=== PATIENT | female | born 1975 | race Caucasian/White ===

== ENCOUNTER 2017-11-29 12:42 | Inpatient (IN) | payer OTHER ==
--- NOTE | 2017-11-29 15:01 | PDOC ---
Attending Attestation - HPI HPI: 11/29/17 15:48 The patient is a 42 year old female, with a significant PMH of gastric bypass, morbid obesity, prior GI bleeding, GERD, chronic back pain, who presents to the emergency department with approx 10 episodes of black stool in the past 3 days. The patient also states beginning today she has experienced epigastric abdominal pain and suprapubic abdominal pain which she states radiates diffusely with associated nausea, shortness of breath, generalized weakness and lightheadedness. The patient denies any history of black stool in the past. The patient reports she has recently finished her LMP. The patient denies chest pain, palpitations, syncope, headache. Denies fever, chills, vomit, diarrhea and constipation. Denies dysuria, frequency, urgency and hematuria. Allergies: hydromorphone, morphine Past surgical history: gastric bypass (2001), cholecystectomy, Social history: No reported PCP: Dr Potts Documentation prepared by Tuan White, acting as chief medical director for Mariana Dorsey MD. <Tuan White - Last Filed: 11/29/17 15:54> - Resident Resident Name: Katt Marina - ED Attending Attestation I have performed the following: I have examined & evaluated the patient, The case was reviewed & discussed with the resident, I agree w/resident's findings & plan, Exceptions are as noted - Physicial Exam PE: GENERAL: Awake, alert, and fully oriented, in no acute distress. Obese. HEAD: No signs of trauma EYES: PERRLA, EOMI, sclera anicteric, conjunctiva clear ENT: Auricles normal inspection, hearing grossly normal, nares patent, oropharynx clear without exudates. Dry mucosa NECK: Normal ROM, supple, no lymphadenopathy, JVD, or masses LUNGS: Breath sounds equal, clear to auscultation bilaterally. No wheezes, and no crackles HEART: Regular rate and rhythm, normal S1 and S2, no murmurs, rubs or gallops ABDOMEN: Soft, diffusely tender, normoactive bowel sounds. +Guarding, no rebound. No masses EXTREMITIES: Normal range of motion, no edema. No clubbing or cyanosis. No cords, erythema, or tenderness NEUROLOGICAL: Cranial nerves II through XII grossly intact. Normal speech, normal gait. Motor and sensation intact. SKIN: Warm, Dry, normal turgor, no rashes or lesions noted. - Medical Decision Making Pt with prior gastric bypass surgery, now with +stool occult and abd pain. Will obtain non-contrast CT a/p in ED to r/o free air. Protonix, protonix drip given in ED. Patient given IV tylenol for pain due to history of side effects with opioids. Will admit. <Mariana Dorsey - Last Filed: 12/02/17 08:25>
[2017-11-29] MEDS ORDERED: SODIUM CHLORIDE 0.9% 500 ML INFUS.BAG IV ONE ×2 (15:18→16:36)
--- NOTE | 2017-11-29 15:29 | PDOC ---
History of Present Illness - General Chief Complaint: Rectal Bleed Stated Complaint: LIGHTHEADED Time Seen by Provider: 11/29/17 14:35 History Source: Patient Exam Limitations: No Limitations - History of Present Illness Initial Comments: 11/29/17 15:22 This is a 42 YOF with h/o yazmin-en-Y gastric bypass (in 2001), cholecystectomy, morbid obesity (currently), prior GI bleeding (cannot recall whether this was upper or lower but notes this was 10-12 years ago), GERD, and chronic back pain who p/w ~10 episodes black stool in the past 3 days, in addition to recently finishing her normal menstrual period, today with additional onset of epigastric and suprapubic abdominal pain radiating diffusely to her abdomen, nausea, SOB, generalized weakness, lightheadedness, pallor. She denies BRBPR. She has not been taking iron, antacids, or other medications that may be contributing to the black stool. She had a colonoscopy 5-6 years ago which showed non-cancerous polyps, removed without issue. She cannot recall having had this black stool in the past. She otherwise denies any new symptoms (no f/c , vomiting, diarrhea, syncope, etc). She denies any chance she may be . She has been taking more Aleve in the past month or so than normal. She notes 2- 3 doses/day for her chronic back pain. Past History - Past Medical History Allergies/Adverse Reactions: Allergies Allergy/AdvReac Type Severity Reaction Status Date / Time hydromorphone [From Dilaudid] Allergy Severe Hives Verified 11/29/17 12:52 morphine Allergy Severe Rash Verified 11/29/17 12:52 Home Medications: Ambulatory Orders Levothyroxine [Synthroid -] 112 mcg PO DAILY 11/29/17 Ascorbic Acid [Vitamin C] 250 mg PO DAILY #30 tablet 12/02/17 Docusate Sodium [Colace] 100 mg PO BID PRN #60 capsule 12/02/17 Ferrous Sulfate 325 mg PO DAILY #30 tablet 12/02/17 Polyethylene Glycol 3350 [Miralax (For Daily Use) -] 17 gm PO BID PRN #1 bottle 12/02/17 COPD: No GI Disorders: Yes (bleed) - Surgical History Abdominal Surgery: Yes (bypass gastric 2001) Cholecystectomy: Yes - Immunization History Immunization Up to Date: Yes - Suicide/Smoking/Psychosocial Hx Smoking History: Never smoked Hx Alcohol Use: No Drug/Substance Use Hx: No Review of Systems - Review of Systems Able to Perform ROS?: Yes Comments:: GEN: chills, generalized weakness, malaise, no measured fever, or weight change HEENT: no ear pain, sore throat, vision change, or eye pain CV: lightheadedness, no chest pain, palpitations, syncope, or edema RESP: SOB, no cough or wheezing GI: nausea, black stool, abdominal pain, no vomiting, diarrhea, or constipation : no dysuria, hematuria, incontinence, retention, bleeding, or discharge MSK: no muscle weakness, muscle pain, joint swelling, or joint pain NEURO: no headache, seizure, numbness, tingling, focal weakness, or head trauma PSYCH: no substance use, SI, or HI SKIN: no jaundice, rash, cuts, or bruises *Physical Exam - Vital Signs Last Vital Signs Temp Pulse Resp BP Pulse Ox 99.0 F 89 18 144/70 100 11/29/17 12:53 11/29/17 12:53 11/29/17 12:53 11/29/17 12:53 11/29/17 12:53 11/29/17 15:30 GENERAL: nontoxic and well-appearing adult female in minimal distress accompanied by male family member at bedside, pleasant, nourished, morbidly obese, A/Ox4, no acute distress, speaking in full sentences, answers questions appropriately HEENT: PERRLA, EOMI, moist mucous membranes, no posterior pharyngeal erythema, no tonsillar swelling or exudates, no cervical lymphadenopathy NECK: No midline ttp, no spinal stepoff or deformity, full ROM, supple CARDIOVASCULAR: Regular rate and rhythm, normal S1S2, no MGR, radial and DP pulses 2+ and symmetric, capillary refill <2 seconds, extremities wwp LUNGS/RESPIRATORY: No respiratory distress, normal and symmetric chest wall movements, lungs CTAB GI/ABDOMEN: Normal symmetric appearance, normoactive bowel sounds, soft, moderate tenderness to palpation epigastric and suprapubic regions, mild diffuse ttp RUQ/RLQ, +rebound tenderness, negative heel tap peritoneal sign, no midline pulsatile masses, no palpated organomegaly, rectal without hemorrhoids, good rectal tone, no gross bleeding, with likely insufficient stool sample : No CVA tenderness BACK: No midline ttp/stepoff/deformity of T/L spine EXTREMITIES: distal pulses 2+, warm and well-perfused, no LE edema SKIN: Warm and dry, no pallor, no jaundice, no bruising, no rash, no skin breakdown, no cuts, no lesions NEUROLOGICAL: GCS 15, CN II-XII grossly intact, moving all extremities, 5/5 strength proximally and distally Heart Score/ECG Review #1 Sinus rhythm, rate of 72, normal axis and intervals, no ischemic ST-T changes ED Treatment Course - LABORATORY CBC & Chemistry Diagram: 12/02/17 06:40 12/01/17 06:00 Medical Decision Making - Medical Decision Making 11/29/17 15:30 Adult patient p/w black stool, abdominal pain. Initial Vital Signs Temp Pulse Resp BP Pulse Ox 99.0 F 89 18 144/70 100 11/29/17 12:53 11/29/17 12:53 11/29/17 12:53 11/29/17 12:53 11/29/17 12:53 Exam: As noted in Physical Exam section. DDX IBNLT: PUD, gastritis, esophagitis, varices (although patient denies heavy drinking and has no other outward e/o portal HTN), confounders (FeSO4, bismuth, leafy green vegetables); gastric or duodenal cancer, very unlikely to be Varsha -Sanchez/Boerhaave as patient has no vomiting/wretching, unlikely aortoenteric fistula as the reported bleed is melena and not brisk and the patient has no h/ o aortic surgery although had gastric bypass, unlikely hemoptysis as no reported cough, unlikely epistaxis as no nasal trauma or report of nosebleed, less likely any cause of lower GIB because reported is melena and not hematochezia although still considered on DDX are diverticulosis/ruptured diverticulum, AV malformation, IBD, UC, anorectal disease, hemorrhoidal bleeding , etc. W/U ordered: Labs as noted below, EKG, CT A/P TX ordered: IVF, Protonix, Zofran PUD is overall MC cause of UGIB in [place] but Pt is a nonsmoker (however using NSAIDs more frequently x weeks). Unlikely esophageal varices as Pt does not report EtOH liver disease, no portal HTN signs. Unlikely Varsha-Sanchez tear as Pt does not report h/o hiatal hernia or heavy EtOH use or vomiting. EKG: Reviewed; results as noted in ECG Review section. Laboratory Tests 11/29/17 11/29/17 11/29/17 16:05 16:05 16:05 WBC 4.7 RBC 3.28 L Hgb 8.0 L Hct 25.3 L MCV 77.2 L MCH 24.3 L MCHC 31.5 L RDW 14.3 Plt Count 209 MPV 9.3 Absolute Neuts (auto) 2.7 Neutrophils % 57.4 Lymphocytes % 33.9 Monocytes % 7.7 Eosinophils % 0.7 Basophils % 0.3 Nucleated RBC % 0 PT with INR 12.20 INR 1.03 PTT (Actin FS) 27.2 Sodium Potassium Chloride Carbon Dioxide Anion Gap BUN Creatinine Creat Clearance w eGFR Random Glucose Calcium Phosphorus Magnesium Total Bilirubin AST ALT Alkaline Phosphatase Total Protein Albumin Serum , Qual Negative Urine Color Urine Appearance Urine pH Ur Specific [place] Urine Protein Urine Glucose (UA) Urine Ketones Urine Blood Urine Nitrite Urine Bilirubin Urine Urobilinogen Ur Leukocyte Esterase Stool Occult Blood Blood Type Antibody Screen Crossmatch 11/29/17 11/29/17 11/29/17 16:05 16:05 16:45 WBC RBC Hgb Hct MCV MCH MCHC RDW Plt Count MPV Absolute Neuts (auto) Neutrophils % Lymphocytes % Monocytes % Eosinophils % Basophils % Nucleated RBC % PT with INR INR PTT (Actin FS) Sodium 140 Potassium 4.3 Chloride 107 Carbon Dioxide 26 Anion Gap 6 L BUN 14 Creatinine 0.6 Creat Clearance w eGFR > 60 Random Glucose 89 Calcium 8.0 L Phosphorus 4.3 Magnesium 2.4 Total Bilirubin 0.1 L AST 22 ALT 16 Alkaline Phosphatase 57 Total Protein 6.2 L Albumin 3.2 L Serum , Qual Urine Color Straw Urine Appearance Clear Urine pH 7.0 Ur Specific [place] 1.011 Urine Protein Negative Urine Glucose (UA) Negative Urine Ketones Negative Urine Blood Negative Urine Nitrite Negative Urine Bilirubin Negative Urine Urobilinogen Negative Ur Leukocyte Esterase Negative Stool Occult Blood Blood Type O POSITIVE Antibody Screen Negative Crossmatch See Detail 11/29/17 17:00 WBC RBC Hgb Hct MCV MCH MCHC RDW Plt Count MPV Absolute Neuts (auto) Neutrophils % Lymphocytes % Monocytes % Eosinophils % Basophils % Nucleated RBC % PT with INR INR PTT (Actin FS) Sodium Potassium Chloride Carbon Dioxide Anion Gap BUN Creatinine Creat Clearance w eGFR Random Glucose Calcium Phosphorus Magnesium Total Bilirubin AST ALT Alkaline Phosphatase Total Protein Albumin Serum , Qual Urine Color Urine Appearance Urine pH Ur Specific [place] Urine Protein Urine Glucose (UA) Urine Ketones Urine Blood Urine Nitrite Urine Bilirubin Urine Urobilinogen Ur Leukocyte Esterase Stool Occult Blood Positive Blood Type Antibody Screen Crossmatch 11/29/17 16:51 Repeat Type&Screen ordered. 11/29/17 19:14 I took rectal temp of 100.3 at the time of FOBT sample collection. Patient states body aches. Given the fever there is more concern at this time for infectious etiology. Will add on lactate, BCx, patient will then get antibiotics, plan for admission. 11/29/17 19:50 Reassessment: Patient states still painful. Repeat exam moderate epigastric and moderate suprapubic ttp, mild RUQ and RLQ ttp. Patient is back from CT, medical student drawing retype, blood cultures, lactate. Patient to be given Zosyn immediately following blood culture draw. CT/ABDOMEN PELVIS CT W/O CONTR Abdomen and pelvis CT (without contrast) Clinical information: abdominal pain Multiplanar imaging was performed. As requested no intravenous or enteric contrast was administered. No prior imaging studies are available at this facility for direct comparison. No evidence of pneumoperitoneum, free intraperitoneal fluid or bowel obstruction. Soft tissue detail is somewhat limited due to body habitus. There appears to be an approximately 4.7 x 2.7 x 0.8 cm subtle subcapsular hypodense focus along the right hepatic dome laterally (transaxial images 15 - 17). Status post bariatric gastric surgery. Status post cholecystectomy. No definite biliary tract dilatation is seen. The spleen, pancreas, and adrenal glands and kidneys demonstrate no discrete noncontrast pathology. There is no aortic aneurysm. No definite lymphadenopathy is identified. A small to moderate umbilical hernia is noted containing properitoneal fat only. There is probable partial visualization of the appendix which demonstrates no obvious abnormality. No indirect CT signs of acute appendicitis are seen. There is no CT evidence of acute diverticulitis or colitis. No gross noncontrast small bowel pathology is visualized. No obvious pelvic pathology is noted. Moderate to marked multilevel lower lumbar degenerative disc changes. IMPRESSION: a possible approximately 4.7 x 2.7 x 0.8 cm subcapsular hypodense focus is seen along the right hepatic dome which may represent a chronic or acute collection and less likely a focal solid lesion. Correlation with contrast-enhanced CT/MRI is suggested, nonemergent versus emergent as clinically indicated. Alternatively comparison with prior CT/MRI studies may be performed if available from a different facility. Status post bariatric gastric surgery. Status post cholecystectomy. Small to moderate umbilical hernia containing fat only. 11/29/17 21:[address] Rollins on for Dr. Strong now. The patient does not recall the name of her GI provider. Consult order is placed for Dr. Strong at Dr. Rollins's request. 11/29/17 21:41 The Pt is unsafe for discharge at this time. They require further hospital observation, workup, and treatment. Microblog sent to [facility] for admission. Blank Decision to Admit order is placed per ED protocol. 11/29/17 22:00 I spoke with Daniele Hammond. Patient is admitted to Med/Surg, Dr. Victoria. *DC/Admit/Observation/Transfer Diagnosis at time of Disposition: Liver mass GI bleed Qualifiers: GI bleed type/associated pathology: unspecified gastrointestinal hemorrhage type Qualified Code(s): K92.2 - Gastrointestinal hemorrhage, unspecified Abdominal pain Qualifiers: Abdominal location: unspecified location Qualified Code(s): R10.9 - Unspecified abdominal pain Anemia Qualifiers: Anemia type: unspecified type Qualified Code(s): D64.9 - Anemia, unspecified - Discharge Dispostion Condition at time of disposition: Guarded Decision to Admit order: Yes - Prescriptions - Referrals - Patient Instructions - Post Discharge Activity
[2017-11-29] MEDS ORDERED: ONDANSETRON 4 MG/2 ML VIAL IVPUSH ONE (15:35)
[2017-11-29 16:21] LABS: BASO % 0.3 % (0-2.0); EOS % 0.7 % (0-4.5); HEMATOCRIT 25.3 % (32.4-45.2); LYMPH % 33.9 % (8-40); MCH 24.3 pg (25.7-33.7); MCHC 31.5 g/dl (32.0-36.0); MEAN CELL VOLUME 77.2 fl (80-96); MEAN PLT VOLUME 9.3 fl (7.5-11.1); MONO % 7.7 % (3.8-10.2); NEUT % 57.4 % (42.8-82.8); PLATELET COUNT 209 K/MM3 (134-434); RBC 3.28 M/mm3 (3.60-5.2); RDW 14.3 % (11.6-15.6); WHITE BLOOD COUNT 4.7 K/mm3 (4.0-10.0)
[2017-11-29] MEDS ORDERED: PANTOPRAZOLE SODIUM 40 MG VIAL IVPUSH ONE (16:31)
[2017-11-29 16:49] LABS: INR 1.03 (0.83-1.09); PROTHROMBIN TIME (PATIENT) 12.2 SEC (9.7-13.0)
[2017-11-29 16:52] LABS: ACTIVATED PTT 27.2 SECONDS (25.2-36.5)
[2017-11-29 16:54] LABS: ALBUMIN 3.2 g/dl (3.4-5.0); ALK PHOS 57 U/L (45-117); ANION GAP 6 MMOL/L (8-16); BILIRUBIN,TOTAL 0.1 mg/dL (0.2-1); BLOOD UREA NITROGEN 14 mg/dL (7-18); CHLORIDE 107 mmol/L (98-107); CO2 26 mmol/L (21-32); CREATININE 0.6 mg/dL (0.55-1.3); GLUCOSE,RANDOM 89 mg/dL (74-106); MAGNESIUM 2.4 mg/dL (1.8-2.4); PHOSPHOROUS 4.3 mg/dL (2.5-4.9); POTASSIUM 4.3 mmol/L (3.5-5.1); SGOT/AST 22 U/L (15-37); SGPT/ALT 16 U/L (13-61); SODIUM 140 mmol/L (136-145); TOT PROT 6.2 g/dl (6.4-8.2)
[2017-11-29 17:00] LABS: URINE APPEARANCE CLEAR; URINE BILIRUBIN NEGATIVE (<2.0 mg/dL); URINE COLOR STRAW; URINE GLUCOSE (UA) NEGATIVE (NEGATIVE); URINE KETONE NEGATIVE (NEGATIVE); URINE LEUK ESTERASE NEGATIVE (NEGATIVE); URINE NITRITE NEGATIVE (NEGATIVE); URINE PROTEIN NEGATIVE (NEGATIVE); URINE UROBILINOGEN NEGATIVE mg/dL (0.2-1.0)
[2017-11-29] MEDS ORDERED: PANTOPRAZOLE SODIUM 40 MG VIAL ONE (17:08)
[2017-11-29] MEDS ORDERED: ONDANSETRON 4 MG/2 ML VIAL ONE (17:08)
[2017-11-29] MEDS ORDERED: PIPERACILLIN/TAZOB 4.5 GM 4.5 GM in DEXTROSE 5%-WATER 100 ML IVPB ONE (17:29)
[2017-11-29] MEDS ORDERED: ACETAMINOPHEN 1000 MG/100 ML VIAL (NON FORMULARY) IVPB ONE (18:08)
[2017-11-29] MEDS: PANTOPRAZOLE SODIUM 80 MG in SODIUM CHLORIDE 100 ML IVPB SCH (18:31)
[2017-11-29] MEDS ORDERED: ACETAMINOPHEN INJECTION 100 ML IVPB ONE (19:16)
[2017-11-29] MEDS ORDERED: PIPERACILLIN/TAZOB 4.5 GM 4.5 GM/100 ML BAG IVPB ONE (20:55)
[2017-11-29] MEDS ORDERED: PANTOPRAZOLE 40 MG TABLET (FP) PO SCH (23:45)
[2017-11-29] MEDS: LACTATED RINGERS SOLUTION 1,000 ML IV SCH (23:59)
--- NOTE | 2017-11-30 00:04 | HP ---
CHIEF COMPLAINT: GI bleed HISTORY OF PRESENT ILLNESS: 42 year old female with a history of morbid obesity, prior GI bleeding (2005), GERD, chronic back pain, quintin-en-Y gastric bypass (2001) presents to the emergency room for 3 days of dark, tarry stool and abdominal pain. Patient reports that she has gone to the bathroom over 10 times over the past 3 days and the consistency of the stool has been continuously dark. Reports that the abdominal pain is located in the epigastric region as well as in bilateral lower quadrants, rates it at a 6/10 and states that it is crampy in quality. Reports some mild nausea but no vomiting over the past 3 days. Denies any association with food. Patient states that she had taken Aleve for her back pain infrequently, with her last dose around 2 weeks ago. She states that she only took it occasionally and not over a long period of time. She reports having a colonoscopy 6 years ago which showed benign polyps, but reports that it did not reveal a source of bleeding. States that she had both upper and lower endoscopies in 2005 during her last episode of GI bleeding. She does not recall the results from those studies, only that she "may have had ulcers". Patient currently endorses mild subjective fever, but denies chest pain, SOB, vomiting. ER course was notable for: (1) H&H 8/25.3 (2) BP 144/70 (3) FOBT + Recent Travel: denies PAST MEDICAL HISTORY: obesity, prior GI bleeding, GERD, chronic back pain PAST SURGICAL HISTORY: Quintin-en-Y (2001), cholecystectomy (1994), , intervertebral disc removal, R wrist and L knee surgeries Social History: Smoking: never Alcohol: socially Drugs: never Family History: mom (ACS, DM, ovarian cancer), dad (ACS) Allergies hydromorphone [From Dilaudid] Allergy (Severe, Verified 11/29/17 12:52) Hives morphine Allergy (Severe, Verified 11/29/17 12:52) Rash HOME MEDICATIONS: Home Medications Medication Instructions Recorded Levothyroxine [Synthroid -] 112 mcg PO DAILY 11/29/17 REVIEW OF SYSTEMS CONSTITUTIONAL: Absent: fever, chills, diaphoresis, generalized weakness, malaise, loss of appetite, weight change HEENT: Absent: rhinorrhea, nasal congestion, throat pain, throat swelling, difficulty swallowing, mouth swelling, ear pain, eye pain, visual changes CARDIOVASCULAR: Absent: chest pain, syncope, palpitations, irregular heart rate, lightheadedness , peripheral edema RESPIRATORY: Absent: cough, shortness of breath, dyspnea with exertion, orthopnea, wheezing, stridor, hemoptysis GASTROINTESTINAL:abdominal pain,nausea,melena Absent: abdominal distension, vomiting, diarrhea, constipation, hematochezia GENITOURINARY: Absent: dysuria, frequency, urgency, hesitancy, hematuria, flank pain, genital pain MUSCULOSKELETAL: Absent: myalgia, arthralgia, joint swelling, back pain, neck pain SKIN: Absent: rash, itching, pallor HEMATOLOGIC/IMMUNOLOGIC: Absent: easy bleeding, easy bruising, lymphadenopathy, frequent infections ENDOCRINE: Absent: unexplained weight gain, unexplained weight loss, heat intolerance, cold intolerance NEUROLOGIC: Absent: headache, focal weakness or paresthesias, dizziness, unsteady gait, seizure, mental status changes, bladder or bowel incontinence PSYCHIATRIC: Absent: anxiety, depression, suicidal or homicidal ideation, hallucinations. PHYSICAL EXAMINATION Vital Signs - 24 hr 11/29/17 11/29/17 12:53 19:14 Temperature 99.0 F 100.3 F H Pulse Rate 89 Respiratory 18 Rate Blood Pressure 144/70 O2 Sat by Pulse 100 Oximetry (%) GENERAL: A&Ox3, no acute distress EYES: PERRLA, EOMI ENT: Moist mucus membranes NECK: No JVD LUNGS: CTA, no wheezes HEART: RRR, no murmurs ABDOMEN: Morbidly obese, soft, BS present, tender to palpation in the epigastrum and b/l lower quadrants. Rectal exam was refused after having conversation about benefits of performing one. MUSCULOSKELETAL: No CVA Tenderness EXTREMITIES: 2+ pulses, no edema. NEUROLOGICAL: Cranial nerves II-XII intact. Laboratory Results - last 24 hr 11/29/17 11/29/17 11/29/17 16:05 16:05 16:05 WBC 4.7 RBC 3.28 L Hgb 8.0 L Hct 25.3 L MCV 77.2 L MCH 24.3 L MCHC 31.5 L RDW 14.3 Plt Count 209 MPV 9.3 Absolute Neuts (auto) 2.7 Neutrophils % 57.4 Lymphocytes % 33.9 Monocytes % 7.7 Eosinophils % 0.7 Basophils % 0.3 Nucleated RBC % 0 PT with INR 12.20 INR 1.03 PTT (Actin FS) 27.2 Sodium Potassium Chloride Carbon Dioxide Anion Gap BUN Creatinine Creat Clearance w eGFR Random Glucose Lactic Acid Calcium Phosphorus Magnesium Total Bilirubin AST ALT Alkaline Phosphatase Total Protein Albumin Serum , Qual Negative Urine Color Urine Appearance Urine pH Ur Specific [place] Urine Protein Urine Glucose (UA) Urine Ketones Urine Blood Urine Nitrite Urine Bilirubin Urine Urobilinogen Ur Leukocyte Esterase Stool Occult Blood Blood Type Antibody Screen Crossmatch 11/29/17 11/29/17 11/29/17 16:05 16:05 16:45 WBC RBC Hgb Hct MCV MCH MCHC RDW Plt Count MPV Absolute Neuts (auto) Neutrophils % Lymphocytes % Monocytes % Eosinophils % Basophils % Nucleated RBC % PT with INR INR PTT (Actin FS) Sodium 140 Potassium 4.3 Chloride 107 Carbon Dioxide 26 Anion Gap 6 L BUN 14 Creatinine 0.6 Creat Clearance w eGFR > 60 Random Glucose 89 Lactic Acid Calcium 8.0 L Phosphorus 4.3 Magnesium 2.4 Total Bilirubin 0.1 L AST 22 ALT 16 Alkaline Phosphatase 57 Total Protein 6.2 L Albumin 3.2 L Serum , Qual Urine Color Straw Urine Appearance Clear Urine pH 7.0 Ur Specific [place] 1.011 Urine Protein Negative Urine Glucose (UA) Negative Urine Ketones Negative Urine Blood Negative Urine Nitrite Negative Urine Bilirubin Negative Urine Urobilinogen Negative Ur Leukocyte Esterase Negative Stool Occult Blood Blood Type O POSITIVE Antibody Screen Negative Crossmatch See Detail 11/29/17 11/29/17 11/29/17 17:00 20:01 20:01 WBC RBC Hgb Hct MCV MCH MCHC RDW Plt Count MPV Absolute Neuts (auto) Neutrophils % Lymphocytes % Monocytes % Eosinophils % Basophils % Nucleated RBC % PT with INR INR PTT (Actin FS) Sodium Potassium Chloride Carbon Dioxide Anion Gap BUN Creatinine Creat Clearance w eGFR Random Glucose Lactic Acid 0.4 Calcium Phosphorus Magnesium Total Bilirubin AST ALT Alkaline Phosphatase Total Protein Albumin Serum , Qual Urine Color Urine Appearance Urine pH Ur Specific [place] Urine Protein Urine Glucose (UA) Urine Ketones Urine Blood Urine Nitrite Urine Bilirubin Urine Urobilinogen Ur Leukocyte Esterase Stool Occult Blood Positive Blood Type O POSITIVE Antibody Screen Crossmatch CT ABD/PELVIS on admission: A possible approximately 4.7 x 2.7 x 0.8 cm subcapsular hypodense focus is seen along the right hepatic dome which may represent a chronic or acute collection and less likely a focal solid lesion. Correlation with contrast-enhanced CT/MRI is suggested, nonemergent versus emergent as clinically indicated. Alternatively comparison with prior CT/MRI studies may be performed if available from a different facility. Status post bariatric gastric surgery. Status post cholecystectomy. Small to moderate umbilical hernia containing fat only. ASSESSMENT/PLAN: 42 year old female with a hx of morbid obesity, prior GI bleeding (2005), GERD, chronic back pain, quintin-en-Y gastric bypass (2001) presents to the emergency room for 3 days of dark, tarry stool and abdominal pain. #Gastrointestinal Bleeding: likely upper GI bleed vs slow-bleeding lower GI bleed, differentials include slow diverticular bleed, peptic ulcer disease, gastritis, IBD, dieulafoy lesion; hemodynamically stable with an H&H of 10/05.3. Will likely need to have endoscopy this admission. -FOBT positive -2U PRBC ordered -repeat CBC at 1am -keep NPO -PPI ordered IV -GI consulted, Dr. Strong -No NSAIDs -monitor vitals, BP, HR #Anemia: likely 2/2 GI bleed, microcytic, hypochromic -assess as per above -will order FE & TIBC and Ferritin #Liver Lesion: found on CT, unclear significance based on radiology report -will ask GI to evaluate -LFTs normal #FEN -LR @ 125cc/hr -lytes wnl -NPO #Prophylaxis -contraindicated if bleeding -SCDs #Disposition -admit med surg Visit type - Emergency Visit Emergency Visit: Yes ED Registration Date: 11/29/17 Care time: The patient presented to the Emergency Department on the above date and was hospitalized for further evaluation of their emergent condition. - New Patient This patient is new to me today: Yes Date on this admission: 11/30/17 - Critical Care Critical Care patient: No
[2017-11-30] MEDS: PANTOPRAZOLE SODIUM 80 MG in SODIUM CHLORIDE 100 ML IVPB SCH (02:31)
--- NOTE | 2017-11-30 03:40 | PN ---
Teaching Attending Note Name of Resident: Rafal Hammond ATTENDING PHYSICIAN STATEMENT I saw and evaluated the patient. Chart, data, imaging reviewed. I reviewed the resident's note and discussed the case with the resident. I agree with the resident's findings and plan as documented. SUBJECTIVE: 42 year old female with a history of morbid obesity, GERD, chronic back pain, quintin-en-Y gastric bypass (2001) presented for 3 days of dark, tarry stool and abdominal pain. Patient cannot recall what might've caused this. Takes alleve a couple times a week for her back pain. OBJECTIVE: Last Vital Signs Temp Pulse Resp BP Pulse Ox 98.6 F 61 18 90/64 97 11/30/17 01:55 11/30/17 01:55 11/30/17 01:55 11/30/17 01:55 11/30/17 01:55 general -nonotxic appearing HEENT- atraumatic, moist oral mucosa neck -supple cv-s1+s2+ rrr chest- clear abdomen- soft, nt, bs+ ext- no pedal edema AKIL was wnl as per ER staff Abnormal Lab Results 11/29/17 11/29/17 11/29/17 16:05 16:05 16:05 RBC 3.28 L Hgb 8.0 L Hct 25.3 L MCV 77.2 L MCH 24.3 L MCHC 31.5 L Anion Gap 6 L Calcium 8.0 L Total Bilirubin 0.1 L Total Protein 6.2 L Albumin 3.2 L Crossmatch See Detail CT ABD/PELVIS on admission: A possible approximately 4.7 x 2.7 x 0.8 cm subcapsular hypodense focus is seen along the right hepatic dome which may represent a chronic or acute collection and less likely a focal solid lesion. Correlation with contrast-enhanced CT/MRI is suggested, nonemergent versus emergent as clinically indicated. Alternatively comparison with prior CT/MRI studies may be performed if available from a different facility. Status post bariatric gastric surgery. Status post cholecystectomy. Small to moderate umbilical hernia containing fat only. ASSESSMENT AND PLAN: #Gastrointestinal Bleeding: unclear source, likely upper GI tract as stools are dark and tarry r/o gastritis, PUD, esophagitis, etc. Possible complication of Quintin and Y bariatric surgery? +FOBT. -repeat CBC -keep NPO -PPI IV -GI consulted, Dr. Strong -No NSAIDs -monitor vitals, BP, HR #Anemia: likely 2/2 GI bleed, microcytic, hypochromic -will order FE & TIBC and Ferritin #Liver Lesion: found on CT, unclear significance based on radiology report -GI input DVT ppx - SCDs
[2017-11-30] MEDS: LACTATED RINGERS SOLUTION 1,000 ML IV SCH (06:34)
[2017-11-30] MEDS: LEVOTHYROXINE NA 112 MCG TABLET (FP) PO SCH (06:34)
[2017-11-30] MEDS ORDERED: PT OWN MED DRAWER 7, Y5N ONE (08:09)
[2017-11-30 08:15] LABS: ALBUMIN 2.9 g/dl (3.4-5.0); ALK PHOS 42 U/L (45-117); ANION GAP 7 MMOL/L (8-16); BILIRUBIN,TOTAL 0.3 mg/dL (0.2-1); BLOOD UREA NITROGEN 11 mg/dL (7-18); CALCIUM 7.4 mg/dL (8.5-10.1); CHLORIDE 111 mmol/L (98-107); CO2 25 mmol/L (21-32); CREATININE 0.6 mg/dL (0.55-1.3); GLUCOSE,RANDOM 95 mg/dL (74-106); MAGNESIUM 2.3 mg/dL (1.8-2.4); PHOSPHOROUS 4.5 mg/dL (2.5-4.9); SGOT/AST 20 U/L (15-37); SGPT/ALT 15 U/L (13-61); SODIUM 143 mmol/L (136-145); TOT PROT 5.6 g/dl (6.4-8.2)
[2017-11-30 08:34] LABS: HEMATOCRIT 26.8 % (32.4-45.2); HEMOGLOBIN 8.8 GM/dL (10.7-15.3); MCH 25.8 pg (25.7-33.7); MCHC 32.8 g/dl (32.0-36.0); MEAN CELL VOLUME 78.6 fl (80-96); MEAN PLT VOLUME 9.7 fl (7.5-11.1); PLATELET COUNT 187 K/MM3 (134-434); RBC 3.41 M/mm3 (3.60-5.2); RDW 15.4 % (11.6-15.6); WHITE BLOOD COUNT 4.7 K/mm3 (4.0-10.0)
--- NOTE | 2017-11-30 09:04 | HOSP ---
Subjective - Review of Symptoms Subjective: c/o diffuse abdominal pain assoc with nausea. continues to pass multiple clots. also witnessed by RN. was recently on her menses that she had some slight spotting yesterday. was not heavier than usual. takes Motrin 2-3/week for back pain but not more excessive. denies other OTC, herbal or weight loss supplements. Had similar episode 11 years ago which they never found a source. had colonoscopy and what sounds like bleeding scan at that time. states she has not been compliant with iron supplements due to social issues. does not suffer from constipation. Current Medications Generic Name Dose Route Start Last Admin Trade Name Freq PRN Reason Stop Dose Admin Pantoprazole Sodium 80 mg/ 100 mls @ 10 mls/hr 11/29/17 15:45 11/30/17 02:31 Sodium Chloride IVPB 10 mls/hr Q10H ANDREW Administration 8 MG/HR Lactated Ringer's 1,000 mls @ 125 mls/hr 11/29/17 23:45 11/30/17 06:34 Lactated Ringers Solution IV 12/01/17 07:44 125 mls/hr ASDIR ANDREW Administration Levothyroxine Sodium 112 mcg 11/30/17 07:00 11/30/17 06:34 Synthroid - PO 112 mcg DAILY@0700 ANDREW Administration Last Vital Signs Temp Pulse Resp BP Pulse Ox 98.6 F 61 18 90/64 97 11/30/17 01:55 11/30/17 01:55 11/30/17 01:55 11/30/17 01:55 11/30/17 01:55 General NAd CV S1 S2 RRR no murmur/rub/gallop Lungs CTA B/L no wheezing/rales/rhonchi Abdomen diffusely tender, higher in the epigastric and RLQ region. normal BS. obese, unable to palpate liver Extremities no pedal edema CBCD WBC 4.7 K/mm3 (4.0-10.0) 11/30/17 06:00 RBC 3.41 M/mm3 (3.60-5.2) L 11/30/17 06:00 Hgb 8.8 GM/dL (10.7-15.3) L 11/30/17 06:00 Hct 26.8 % (32.4-45.2) L 11/30/17 06:00 MCV 78.6 fl (80-96) L 11/30/17 06:00 MCHC 32.8 g/dl (32.0-36.0) 11/30/17 06:00 RDW 15.4 % (11.6-15.6) 11/30/17 06:00 Plt Count 187 K/MM3 (134-434) 11/30/17 06:00 MPV 9.7 fl (7.5-11.1) 11/30/17 06:00 CMP Sodium 143 mmol/L (136-145) 11/30/17 06:00 Potassium 4.0 mmol/L (3.5-5.1) 11/30/17 06:00 Chloride 111 mmol/L (98-107) H 11/30/17 06:00 Carbon Dioxide 25 mmol/L (21-32) 11/30/17 06:00 Anion Gap 7 MMOL/L (8-16) L 11/30/17 06:00 BUN 11 mg/dL (7-18) 11/30/17 06:00 Creatinine 0.6 mg/dL (0.55-1.3) 11/30/17 06:00 Creat Clearance w eGFR > 60 (>60) 11/30/17 06:00 Calcium 7.4 mg/dL (8.5-10.1) L 11/30/17 06:00 Total Bilirubin 0.3 mg/dL (0.2-1) 11/30/17 06:00 AST 20 U/L (15-37) 11/30/17 06:00 ALT 15 U/L (13-61) 11/30/17 06:00 Alkaline Phosphatase 42 U/L (45-117) L 11/30/17 06:00 Total Protein 5.6 g/dl (6.4-8.2) L 11/30/17 06:00 Albumin 2.9 g/dl (3.4-5.0) L 11/30/17 06:00 A/P 42yo F wtih PMH hypothyroid, morbid obesity s/p Quintin-y 2001 and GIB 11 years ago presented with abdominal pain and melena for 3 days 1. GI bleed- unclear source although would suspect upper. received 2 units PRBC in the ER with inappropriate response. although is hemodynamically stable would consider giving more PRBC due to active bleeding and symptomatic. also could watch and continue to trend Hgb. spoke with GI who will go evaluate patient. would need repeat scope but can likely wait at this time as not emergent. cont NPO, PPI ggt, and IVF, pain and nausea control 2. Microcytic anemia- not compliant with iron supplements. would benefit from Venofer prior to discharge. unable to check iron stores at this time in setting of blood products received. 3. Liver lesion- questionable fluid accumulation. unable to specify if chronic, pt reports no knowledge of it. pt does not currently have RUQ pain. would benefit from CT with contrast. 4. hypothyroid- LT4 5. Morbid obesity- BMI 52. lifestlye modifications. had undergone bariatric surgery 6. DVT ppx- SCD. hold pharmacologic anticoagulation in setting of bleeding. Physical Examination Vital Signs: Vital Signs Temperature 98.6 F 11/30/17 01:55 Pulse Rate 61 11/30/17 01:55 Respiratory Rate 18 11/30/17 01:55 Blood Pressure 90/64 11/30/17 01:55 O2 Sat by Pulse Oximetry (%) 97 11/30/17 01:55 Labs: CBC, BMP 11/30/17 06:00
[2017-11-30] MEDS ORDERED: ACETAMINOPHEN 1000 MG/100 ML VIAL (NON FORMULARY) IVPB PRN (09:05)
[2017-11-30] MEDS ORDERED: ONDANSETRON 4 MG/2 ML VIAL IVPB PRN (09:05)
--- NOTE | 2017-11-30 11:19 | CON.GI ---
Consult Consult Specialty:: GI Referred by:: Hospitalist Reason for Consultation:: Melena - History of Present Illness Chief Complaint: Melena History of Present Illness: 42F admitted through [facility] for evaluation of dark bowel movements for 3 days. Her drove her down from [place] because her works here. Her initial Hgb was 8. She took aleve for a few days a couple of weeks ago for back pain. Her hgb this AM was 8.8. She describes having had an EGD/ Colonoscopy 5 uears ago and recalls colon polyps being removed. She describes GI bleeding multiple years ago with unrevealing workl-up. She describes her gasstric bypass being described as being made "too proximal and causing ischemia " in the past. She compains of upper abdominal pain. Her CT scan showed ? fluid collection in the liver, however the CT scan was performed without IV contrast. She describes nausea. There is no family history of colorectal cancer. Her temp was 100.3 in the ED and she was given zosyn. She was noted to have a microcytosis and has not had regular medical follow-up. She has not been taking iron supplementation. Blood tinge to her dark BM's were described this morning. - History Source History Provided By: Patient - Past Medical History Gastrointestinal: Yes: Other (GI bleed 2010) ...LMP: 11/30/17 ...: No Endocrine: Yes: Hypothyroidism Additional Medical History: Obesity - Past Surgical History Past Surgical History: Yes: Bariatric Surgery (Rooux-en-y gastric bypass), Cholecystectomy (laparascopic), - Alcohol/Substance Use Hx Alcohol Use: No History of Substance Use: reports: None - Smoking History Smoking history: Never smoked - Social History Usual Living Arrangement: With Spouse ADL: Independent Place of : [facility] History of Recent Travel: No Home Medications - Allergies Allergies/Adverse Reactions: Allergies Allergy/AdvReac Type Severity Reaction Status Date / Time hydromorphone [From Dilaudid] Allergy Severe Hives Verified 11/29/17 12:52 morphine Allergy Severe Rash Verified 11/29/17 12:52 - Home Medications Home Medications: Ambulatory Orders Levothyroxine [Synthroid -] 112 mcg PO DAILY 11/29/17 Family Disease History - Family Disease History Family Disease History: Heart Disease: Father (Alive: CHF), Other: Father, Mother (: 64: CVA, uterine cancer), Brother (1, healthy), Sister (1, healthy ), Son (1, healthy) Other Family History: No family history of colorectal cancer or other GI malignancy Review of Systems - Review of Systems Constitutional: denies: Chills Cardiovascular: denies: Chest Pain Respiratory: denies: Cough, SOB Gastrointestinal: reports: Abdominal Pain, Melena, Nausea. denies: Vomiting Physical Exam-GI Vital Signs: Vital Signs Temperature 98.6 F 11/30/17 01:55 Pulse Rate 61 11/30/17 01:55 Respiratory Rate 18 11/30/17 01:55 Blood Pressure 90/64 11/30/17 01:55 O2 Sat by Pulse Oximetry (%) 97 11/30/17 01:55 Constitutional: Yes: Calm Eyes: No: Sclera Icterus Cardiovascular: Yes: Regular Rate and Rhythm. No: Murmur Respiratory: Yes: CTA Bilaterally Gastrointestinal Inspection: Yes: Scars (Mid vertical upper abdominal surgical scar, healed trochar scars, horozintal pelvic surgical scar) ...Auscultate: Yes: Normoactive Bowel Sounds ...Palpate: Yes: Soft, Tenderness (Mild TTP upper abdomen). No: Splenomegaly ...Percussion: No: Tympanitic ...Rectal Exam: Yes: Other (No external lesions, no gross blood, dark brown stool, guaiac +) Edema: No (No LE edema) Neurological: Yes: Alert Labs: CBC, BMP 11/30/17 06:00 11/30/17 06:00 INR, PTT INR 1.03 (0.83-1.09) 11/29/17 16:05 Problem List - Problems (1) GI bleed Assessment/Plan: Guaiac positive dark BM's Discussed with patient Discussed EGD to exclude upper GI source of bleeding such as bleeding blood vessels, PUD, bleeding at anastamotic site, malignancy of GI tract. Discussed potential risks of the procedure like but nopt limited to bleeding, perforation requiring surgery to repair, infection, sedation medciation effects all of which could be potentially life threatening. She has agreed to the procedure. If unrevealing will need colonoscopy. For now: NPO except meds Continue PPI drip Triple phase CT scan of the abdomen with IV contrast only to evaluate ? liver collection. ID evaluation Repeat CBC ordered for 12pm today Code(s): K92.2 - GASTROINTESTINAL HEMORRHAGE, UNSPECIFIED Qualifiers: GI bleed type/associated pathology: unspecified gastrointestinal hemorrhage type Qualified Code(s): K92.2 - Gastrointestinal hemorrhage, unspecified
[2017-11-30 12:32] LABS: HEMATOCRIT 25.2 % (32.4-45.2); HEMOGLOBIN 8.1 GM/dL (10.7-15.3); MCH 25.2 pg (25.7-33.7); MCHC 31.9 g/dl (32.0-36.0); MEAN CELL VOLUME 78.9 fl (80-96); MEAN PLT VOLUME 9.2 fl (7.5-11.1); PLATELET COUNT 152 K/MM3 (134-434); RBC 3.19 M/mm3 (3.60-5.2); RDW 15.6 % (11.6-15.6); WHITE BLOOD COUNT 4.1 K/mm3 (4.0-10.0)
[2017-11-30] MEDS ORDERED: TETRACAINE/BENZOCAINE/BUTAMBEN 20 GM SPR TP ONE (14:31)
[2017-11-30] MEDS ORDERED: LACTATED RINGERS SOLUTION 1,000 ML IV SCH (15:00)
--- NOTE | 2017-11-30 15:05 | PN ---
Progress Note (short form) - Note Progress Note: EGD complete. Report placed in physical chart and to be scanned into [employer] Problem List - Problems (1) GI bleed Code(s): K92.2 - GASTROINTESTINAL HEMORRHAGE, UNSPECIFIED Qualifiers: GI bleed type/associated pathology: unspecified gastrointestinal hemorrhage type Qualified Code(s): K92.2 - Gastrointestinal hemorrhage, unspecified
[2017-11-30 16:19] VITALS: BMI 51.7
--- NOTE | 2017-11-30 18:03 | EKG ---
Test Reason : Blood Pressure : / mmHG Vent. Rate : 072 BPM Atrial Rate : 072 BPM P-R Int : 156 ms QRS Dur : 086 ms QT Int : 428 ms P-R-T Axes : 043 -12 029 degrees QTc Int : 468 ms NORMAL SINUS RHYTHM LOW VOLTAGE QRS CANNOT RULE OUT ANTERIOR INFARCT , AGE UNDETERMINED ABNORMAL ECG NO PREVIOUS ECGS AVAILABLE Confirmed by ASHLIE CALDERA MD ([id number]) on 11/30/2017 6:02:33 PM Referred By: Confirmed By:ASHLIE CALDERA MD
[2017-12-01] MEDS: LEVOTHYROXINE NA 112 MCG TABLET (FP) PO SCH (06:06)
[2017-12-01 06:35] LABS: BASO % 0.5 % (0-2.0); EOS % 1.5 % (0-4.5); HEMATOCRIT 28.2 % (32.4-45.2); HEMOGLOBIN 9.3 GM/dL (10.7-15.3); LYMPH % 29.4 % (8-40); MCH 26.1 pg (25.7-33.7); MEAN CELL VOLUME 79.1 fl (80-96); MEAN PLT VOLUME 9.1 fl (7.5-11.1); MONO % 7.3 % (3.8-10.2); NEUT % 61.3 % (42.8-82.8); PLATELET COUNT 154 K/MM3 (134-434); RBC 3.56 M/mm3 (3.60-5.2); RDW 16.4 % (11.6-15.6); WHITE BLOOD COUNT 4.7 K/mm3 (4.0-10.0)
[2017-12-01 06:36] LABS: SERUM IRON SATURATION 9 % (15-55); TOTAL IRON BINDING CAPACITY 274 ug/dL (250-450); UIBC 250 ug/dL (131-425)
[2017-12-01 06:54] LABS: ANION GAP 8 MMOL/L (8-16); BLOOD UREA NITROGEN 5 mg/dL (7-18); CALCIUM 7.5 mg/dL (8.5-10.1); CHLORIDE 108 mmol/L (98-107); CO2 28 mmol/L (21-32); CREATININE 0.6 mg/dL (0.55-1.3); GLUCOSE,RANDOM 90 mg/dL (74-106); SODIUM 144 mmol/L (136-145)
--- NOTE | 2017-12-01 09:20 | PN ---
Teaching Attending Note Name of Resident: Rafal Walter ATTENDING PHYSICIAN STATEMENT I saw and evaluated the patient. I reviewed the resident's note and discussed the case with the resident. I agree with the resident's findings and plan as documented. SUBJECTIVE:c/o BURKS this AM which resolved with coffee this AM. last BM was yesterday afternoon which had blood clots in it. none since. tolerating clear liquid diet. denies CP, SOB, fever, chills, N/V OBJECTIVE: Last Vital Signs Temp Pulse Resp BP Pulse Ox 98.4 F 62 18 135/87 98 12/01/17 08:15 12/01/17 08:15 12/01/17 08:15 12/01/17 08:15 11/30/17 21:00 General NAD Abdomen soft NT/ND obese ASSESSMENT AND PLAN: 42yo F wtih PMH hypothyroid, morbid obesity s/p Quintin-y 2001 and GIB 11 years ago presented with abdominal pain and melena for 3 days 1. GI bleed- EGD done yesterday which was normal. tolerating clears. no active bleeding for >12H. plan for colonoscopy in the AM. PPI ggt d/c. plan to start bowel prep today. GI on board 2. Microcytic anemia- not compliant with iron supplements. s/p 3 units PRBC this hospitalization. Hgb stable. hemodynamically stable. no longer symptomatic. will give venofer today. does not tolerate po well. may benefit from additional IV iron supplementation as outpatient. 3. Liver lesion- questionable fluid accumulation. CT with contrast done to further evaluate. awaiting official read. 4. hypothyroid- LT4 5. Morbid obesity- BMI 52. lifestlye modifications. had undergone bariatric surgery 6. DVT ppx- SCD. hold pharmacologic anticoagulation in setting of bleeding.
--- NOTE | 2017-12-01 10:42 | PN ---
GI Progress Note Subjective: No acute events No overt bleeding Unrevealing EGD yesterday - Objective Vital Signs: Vital Signs Temperature 98.4 F 12/01/17 08:15 Pulse Rate 62 12/01/17 08:15 Respiratory Rate 18 12/01/17 08:15 Blood Pressure 135/87 12/01/17 08:15 O2 Sat by Pulse Oximetry (%) 98 11/30/17 21:00 Constitutional: Calm Eyes: No: Sclera Icterus Cardiovascular: Yes: Regular Rate and Rhythm Respiratory: Yes: CTA Bilaterally Gastrointestinal Inspection: No: Distention ...Auscultate: Yes: Normoactive Bowel Sounds ...Palpate: No: Tenderness Labs: CBC, BMP 12/01/17 06:00 12/01/17 06:00 INR, PTT INR 1.03 (0.83-1.09) 11/29/17 16:05 Problem List - Problems (1) GI bleed Assessment/Plan: No overt bleeding Plan for colonoscopy 12/02 Code(s): K92.2 - GASTROINTESTINAL HEMORRHAGE, UNSPECIFIED Qualifiers: GI bleed type/associated pathology: unspecified gastrointestinal hemorrhage type Qualified Code(s): K92.2 - Gastrointestinal hemorrhage, unspecified
--- NOTE | 2017-12-01 14:18 | PN ---
Physical Exam: SUBJECTIVE: No acute events overnight. Pt reports having 1 BM last night that was bloody with some clots. Pt denies any complaints at this current moment. Pt s/p 1UPRBC from last CBC (3 total over admission) with appropriate increase in Hgb. OBJECTIVE: Vital Signs Period Temp Pulse Resp BP Sys/White Pulse Ox Last 24 Hr 98.0 F-98.4 F 56-62 14-18 100-135/46-87 98-100 GENERAL: The patient is awake, alert, and fully oriented, in no acute distress. HEENT: EOMI, ISABELLA, sclera anicteric, no pallor noted in conjunctiva LUNGS: CTA bilaterally, no wheezes, no crackles, no accessory muscle use. HEART: RRR, S1, S2 without murmur ABDOMEN: Soft, nontender, nondistended, normoactive bowel sounds, no guarding EXTREMITIES: 2+ pulses throughout, warm, well-perfused, no edema. Circular erythema noted on extensor surface of R arm without any warmth or tenderness to palpation PSYCH: Normal mood, normal affect. SKIN: Warm, dry, see ext exam; otherwise no other rashes Laboratory Results - last 24 hr 11/29/17 11/30/17 12/01/17 16:05 06:00 06:00 WBC 4.7 RBC 3.56 L Hgb 9.3 L Hct 28.2 L MCV 79.1 L MCH 26.1 MCHC 33.0 RDW 16.4 H Plt Count 154 MPV 9.1 Absolute Neuts (auto) 2.9 Neutrophils % 61.3 Lymphocytes % 29.4 Monocytes % 7.3 Eosinophils % 1.5 D Basophils % 0.5 Nucleated RBC % 0 Sodium Potassium Chloride Carbon Dioxide Anion Gap BUN Creatinine Creat Clearance w eGFR Random Glucose Calcium Iron 24 L TIBC 274 Iron Saturation 9 L Blood Type O POSITIVE Antibody Screen Negative Crossmatch See Detail 12/01/17 06:00 WBC RBC Hgb Hct MCV MCH MCHC RDW Plt Count MPV Absolute Neuts (auto) Neutrophils % Lymphocytes % Monocytes % Eosinophils % Basophils % Nucleated RBC % Sodium 144 Potassium 4.0 Chloride 108 H Carbon Dioxide 28 Anion Gap 8 BUN 5 L Creatinine 0.6 Creat Clearance w eGFR > 60 Random Glucose 90 Calcium 7.5 L Iron TIBC Iron Saturation Blood Type Antibody Screen Crossmatch Active Medications Generic Name Dose Route Start Last Admin Trade Name Freq PRN Reason Stop Dose Admin Acetaminophen 1,000 mg 11/30/17 09:05 11/30/17 19:54 Ofirmev Injection - IVPB 1,000 mg Q6H PRN Administration pain Bisacodyl 20 mg 12/01/17 15:00 Dulcolax - PO 12/01/17 15:01 ONCE ONE Levothyroxine Sodium 112 mcg 11/30/17 07:00 12/01/17 06:06 Synthroid - PO 112 mcg DAILY@0700 ANDREW Administration Ondansetron HCl 8 mg 11/30/17 09:05 Zofran Injection IVPB Q6H PRN NAUSEA ASSESSMENT/PLAN: 1) Lower GI bleed --EGD performed without any abnormalities seen --Tolerating clear diet currently --To start Golytely prep today for colonoscopy tomorrow --No need to have protonix as most likely lower GI bleed --GI already on board 2) Hypothyroid --Continue Synthroid 112mcg qDaily 3) Microcytic anemia --May benefit from IV iron supplementation as outpatient due to PO intolerance FEN: Fluids: None currently Electrolytes: No abnormalities Nutrition: Clear liquids; strict NPO for procedure at midnight PPX DVT - SCD's due to bleeding Dispo: Colonoscopy tomorrow Case discussed with Dr. Deric Walter, DO - IM PGY-2 Visit type - Emergency Visit Emergency Visit: Yes ED Registration Date: 11/29/17 Care time: The patient presented to the Emergency Department on the above date and was hospitalized for further evaluation of their emergent condition. - New Patient This patient is new to me today: Yes Date on this admission: 12/01/17 - Critical Care Critical Care patient: No
[2017-12-01] MEDS ORDERED: BISACODYL 5 MG TABLET.DR (FP) PO ONE (15:00)
[2017-12-01] MEDS ORDERED: PEG3350/SOD SULF,BICARB,CL/KCL 4,000 ML SOLN.RECON PO ONE (16:00)
[2017-12-02] MEDS: LEVOTHYROXINE NA 112 MCG TABLET (FP) PO SCH (06:23)
[2017-12-02 07:47] LABS: HEMATOCRIT 29.5 % (32.4-45.2); HEMOGLOBIN 9.8 GM/dL (10.7-15.3); MCH 26.6 pg (25.7-33.7); MCHC 33.1 g/dl (32.0-36.0); MEAN CELL VOLUME 80.2 fl (80-96); MEAN PLT VOLUME 9.6 fl (7.5-11.1); PLATELET COUNT 177 K/MM3 (134-434); RBC 3.68 M/mm3 (3.60-5.2); RDW 16.7 % (11.6-15.6); WHITE BLOOD COUNT 4.1 K/mm3 (4.0-10.0)
--- NOTE | 2017-12-02 09:18 | PN ---
Physical Exam: SUBJECTIVE: Patient seen and examined at bedside. She states she is feeling much better than yesterday. She is continuing with the [employer] prep for her colonoscopy today. She is no longer having any dark stools. She is having a slight headache- however, denies any CP, SOB, nausea or vomiting. Her most recent Hgb from this morning was 9.8 and she has received a total of 3 units of blood so far on this admission. OBJECTIVE: Vital Signs Period Temp Pulse Resp BP Sys/White Pulse Ox Last 24 Hr 98.2 F-98.6 F 55-58 17-20 104-143/57-76 98 GENERAL: The patient is awake, alert, and fully oriented, in no acute distress. NECK: no JVD appreciated LUNGS: CTA B/L; no rales, rhonchi or wheezing HEART: Regular rate and rhythm, S1, S2 without murmur, rub or gallop. ABDOMEN: Soft, nontender, nondistended, normoactive bowel sounds, no guarding, no rebound, no hepatosplenomegaly, no masses. EXTREMITIES: 2+ pulses, warm, well-perfused, no edema. NEUROLOGICAL: Cranial nerves II through XII grossly intact. Normal speech, gait not observed. PSYCH: Normal mood, normal affect. SKIN: Warm, dry, normal turgor, no rashes or lesions noted Laboratory Results - last 24 hr 12/02/17 06:40 WBC 4.1 RBC 3.68 Hgb 9.8 L Hct 29.5 L MCV 80.2 MCH 26.6 MCHC 33.1 RDW 16.7 H Plt Count 177 MPV 9.6 Active Medications Generic Name Dose Route Start Last Admin Trade Name Freq PRN Reason Stop Dose Admin Acetaminophen 1,000 mg 11/30/17 09:05 11/30/17 19:54 Ofirmev Injection - IVPB 1,000 mg Q6H PRN Administration pain Levothyroxine Sodium 112 mcg 11/30/17 07:00 12/02/17 06:23 Synthroid - PO 112 mcg DAILY@0700 ANDREW Administration Ondansetron HCl 8 mg 11/30/17 09:05 Zofran Injection IVPB Q6H PRN NAUSEA ASSESSMENT/PLAN:
[2017-12-02 12:00] VITALS: TEMP 98.4
--- NOTE | 2017-12-02 12:00 | PN ---
Progress Note (short form) - Note Progress Note: Colonoscopy complete. Report left in physical chart and to be scanned into [employer] Problem List - Problems (1) GI bleed Code(s): K92.2 - GASTROINTESTINAL HEMORRHAGE, UNSPECIFIED Qualifiers: GI bleed type/associated pathology: unspecified gastrointestinal hemorrhage type Qualified Code(s): K92.2 - Gastrointestinal hemorrhage, unspecified
[2017-12-02 12:40] VITALS: BP 105/52; PULSE 57
--- NOTE | 2017-12-02 15:07 | PN ---
Teaching Attending Note Name of Resident: Hortensia Holly ATTENDING PHYSICIAN STATEMENT I saw and evaluated the patient. I reviewed the resident's note and discussed the case with the resident. I agree with the resident's findings and plan as documented. SUBJECTIVE:her BM starting turning clearing and no clots or bleeding. denies Cp , SOB, fever, chills, N/v/C/d OBJECTIVE: Last Vital Signs Temp Pulse Resp BP Pulse Ox 98.4 F 57 L 18 105/52 L 97 12/02/17 12:40 12/02/17 12:40 12/02/17 12:40 12/02/17 12:40 12/02/17 12:40 General NAD Abdomen soft NT/ND obese ASSESSMENT AND PLAN: 42yo F wtih PMH hypothyroid, morbid obesity s/p Quintin-y 2001 and GIB 11 years ago presented with abdominal pain and melena for 3 days 1. GI bleed- colonoscopy done today showing hemrrhoids. no more bleeding. can f/ u with GI as outpatient if bleeding persists for capsule endoscopy. GI on board 2. Microcytic anemia- not compliant with iron supplements. s/p 3 units PRBC this hospitalization. Hgb stable. hemodynamically stable. iron po. will need iron studies repeated in 3 months. 3. Liver lesion- questionable fluid accumulation. CT with contrast done and was negative. accumulation/lesion was not appreciated. most likely attenuation from the diaphragm 4. hypothyroid- LT4 5. Morbid obesity- BMI 52. lifestlye modifications. had undergone bariatric surgery 6. DVT ppx- SCD. hold pharmacologic anticoagulation in setting of bleeding. 7. d/c home
--- NOTE | 2017-12-02 17:47 | DS ---
Physical Exam: SUBJECTIVE: .Patient seen and examined at bedside. She states she is feeling much better than yesterday. She is continuing with the Fonemesh prep for her colonoscopy today. She is no longer having any dark stools. She is having a slight headache- however, denies any CP, SOB, nausea or vomiting. Her most recent Hgb from this morning was 9.8 and she has received a total of 3 units of blood so far on this admission. OBJECTIVE: Vital Signs Period Temp Pulse Resp BP Sys/White Pulse Ox Last 24 Hr 98.2 F-98.6 F 50-58 12-20 98-143/38-76 97-100 PHYSICAL EXAM GENERAL: The patient is awake, alert, and fully oriented, in no acute distress.. EYES: no scleral icterus NECK: no JVD . LUNGS: Breath sounds equal, clear to auscultation bilaterally, no wheezes, no crackles, no accessory muscle use. HEART: Regular rate and rhythm, S1, S2 without murmur, rub or gallop. ABDOMEN: Soft, nontender, nondistended, normoactive bowel sounds, no guarding, no rebound, no hepatosplenomegaly, no masses. EXTREMITIES: 2+ pulses, warm, well-perfused, no edema. PSYCH: Normal mood, normal affect. SKIN: Warm, dry, normal turgor, no rashes or lesions noted. LABS Laboratory Results - last 24 hr 12/02/17 06:40 WBC 4.1 RBC 3.68 Hgb 9.8 L Hct 29.5 L MCV 80.2 MCH 26.6 MCHC 33.1 RDW 16.7 H Plt Count 177 MPV 9.6 Microbiology 11/29/17 20:01 Blood - Peripheral Venous Blood Culture - Preliminary NO GROWTH OBTAINED AFTER 48 HOURS, INCUBATION TO CONTINUE FOR 3 DAYS. 11/29/17 20:01 Blood - Peripheral Venous Blood Culture - Preliminary NO GROWTH OBTAINED AFTER 48 HOURS, INCUBATION TO CONTINUE FOR 3 DAYS. 11/29/17 16:45 Urine - Urine Clean Catch Urine Culture - Final Imaging: AB/Pelvis CT with contrast 11/29: a possible approximately 4.7 x 2.7 x 0.8 cm subcapsular hypodense focus is seen along the right hepatic dome which may represent a chronic or acute collection and less likely a focal solid lesion. Correlation with contrast-enhanced CT/MRI is suggested, nonemergent versus emergent as clinically indicated. Alternatively comparison with prior CT/MRI studies may be performed if available from a different facility. 11/30: AB pelvis CT with contrast Mild hepatosplenomegaly with no discrete liver lesion or acute pathology within the abdomen or pelvis. Please see above discussion. Upper Endoscopy: 11/29 unrevealing; no active bleeding Colonoscopy 12/02- small internal hemorrhoids HOSPITAL COURSE: 42 y/o female with PMH of prior GI bleed, GERD, previous gastric bypass surgery presented to the ED on 11/29 with complaints of a three day history of dark, tarry stool with associated abdominal pain, but no vomiting. On arrival to the ED, her Hgb was found to be 8.8, however, she was not experiencing any headaches /dizziness. She received a total of 3 units RBCs throughout her stay. She had a colonoscopy which revealed small internal hemorrhoids and she also had an EGD which was unrevealing. She was no longer experiencing any bloody bowel movements upon discharge. She was discharged with a Hgb of 9.8 and follow up with Dr. Rollins in 2 weeks. Her microcytic anemia is stable- needs to repeat iron studies as an outpatient in 3 months. She was also found to have a fluid collection in the hepatic dome which could either be acute or chronic, which will be followed up as an outpatient. Date of Admission:11/29/17 Date of Discharge: 12/02/17 Minutes to complete discharge: 30 <Hortensia Holly - Last Filed: 12/02/17 19:03> Physical Exam: Repeat CT with contrast was done to further evaluate liver lesion seen on dry scan. this was no longer appreciated and likely due to increased attenuation of the diaphragm. nothing to be done further <Aliyah Leos - Last Filed: 12/03/17 08:38> Discharge Summary Reason For Visit: GASTROINTESTINAL HEMORRHAGE,ANEMIA,ABDOMINAL PAIN - Home Medications Comprehensive Discharge Medication List: Ambulatory Orders Levothyroxine [Synthroid -] 112 mcg PO DAILY 11/29/17 Ascorbic Acid [Vitamin C] 250 mg PO DAILY #30 tablet 12/02/17 Docusate Sodium [Colace] 100 mg PO BID PRN #60 capsule 12/02/17 Ferrous Sulfate 325 mg PO DAILY #30 tablet 12/02/17 Polyethylene Glycol 3350 [Miralax (For Daily Use) -] 17 gm PO BID PRN #1 bottle 12/02/17 <Hortensia Holly - Last Filed: 12/02/17 19:03> - Home Medications Comprehensive Discharge Medication List: Ambulatory Orders Levothyroxine [Synthroid -] 112 mcg PO DAILY 11/29/17 Ascorbic Acid [Vitamin C] 250 mg PO DAILY #30 tablet 12/02/17 Docusate Sodium [Colace] 100 mg PO BID PRN #60 capsule 12/02/17 Ferrous Sulfate 325 mg PO DAILY #30 tablet 12/02/17 Polyethylene Glycol 3350 [Miralax (For Daily Use) -] 17 gm PO BID PRN #1 bottle 12/02/17 <Aliyah Leos - Last Filed: 12/03/17 08:38> Condition: Stable - Instructions Diet, Activity, Other Instructions: You were admitted to the hospital for a gastrointestinal bleed. You have received three units of blood since arriving at the hospital and your hemoglobin level is improving. You had an upper endoscopy performed in addition to a colonoscopy. The upper endoscopy was normal, the colonoscopy revealed small internal hemorrhoids. You may continue to have black stools for several days. Also taking iron supplements may cause black stools. GI Recommendations: 1. Avoid NSAIDS (Advil, Motrin, Ibuprofen, Aleve) 2. Eat a high fiber diet 3. Repeat colonoscopy in 5 years 4. If you continue to have bleeding per rectum, you will need an outpatient capsule endoscopy (pill-camera) 5. Please take iron supplementation with vitamin C, we will prescribe you ferrous sulfate 325mg once a day as well as vitamin C. 6. Follow up with your bariatric surgeon and [employer] Please continue with all of your current home medications. Please take miralax and colace twice a day as needed for constipation, which can happen when taking iron supplementation. You should have your iron studies checked in 3 months. Referrals: We advise you to follow up with your primary care physician in one week we advise that you follow up with Dr. Rollins in 1-2 weeks *if you experience any headaches, nausea, vomiting, abnormal bleeding, dark stools, fevers or chills please return to the Emergency Room immediately Referrals: Faby Potts MD [Primary Care Provider] - 1 Week Robert Rollins DO [Staff Physician] - 1 Week Disposition: HOME Problem List - Problems (1) Abdominal pain Code(s): R10.9 - UNSPECIFIED ABDOMINAL PAIN Qualifiers: Abdominal location: unspecified location Qualified Code(s): R10.9 - Unspecified abdominal pain (2) GI bleed Code(s): K92.2 - GASTROINTESTINAL HEMORRHAGE, UNSPECIFIED Qualifiers: GI bleed type/associated pathology: unspecified gastrointestinal hemorrhage type Qualified Code(s): K92.2 - Gastrointestinal hemorrhage, unspecified (3) Internal hemorrhoids Code(s): K64.8 - OTHER HEMORRHOIDS <Hortensia Holly - Last Filed: 12/02/17 19:03> This patient is new to me today: Yes Date on this admission: 12/02/17 Emergency Visit: Yes ED Registration Date: 11/29/17 Care time: The patient presented to the Emergency Department on the above date and was hospitalized for further evaluation of their emergent condition. Critical Care patient: No - Discharge Referral Referred to [facility] No Physician Referral: Av Rollins DO (GI) <Hortensia Holly - Last Filed: 12/02/17 19:03>
--- NOTE | 2017-12-03 11:08 | PATH ---
Surgical Pathology Report Patient Name: URSULA FLANNERY Med. Rec. #: [id number] /Age/Gender: 1975 (Age: 42) / F Account: [id number] Location: [address] [place] [address]/[facility] Taken: 11/30/2017 Received: 12/02/2017 Reported: 12/03/2017 Physicians: Aman Dumont Specimen(s) Received ANASTOMOSIS RING BX Clinical History Gastrointestinal hemorrhage, anemia Postoperative diagnosis: Gastric bypass anatomy Final Diagnosis GASTROENTERIC ANASTOMOSIS, BIOPSY: JUNCTIONAL MUCOSA WITH MILD CHRONIC INFLAMMATION CONSISTENT WITH ANASTOMOTIC SITE. Electronically Signed Delisa Ngo M.D. Gross Description Received in formalin, labeled "gastroenteric anastomosis" are 3 larose, irregular portions of soft tissue ranging from 0.2-0.4 cm. in greatest dimension. The specimens are submitted in toto in one cassette. /12/02/2017 saudi12/02/2017
== END 2017-12-02 14:38 | disposition home or self-care (01) | DRG 378 ==
LOC: JER 12:42 → JERBED 21:14 → J7W 11-30 04:02 → J6S 11-30 18:14
PROVIDERS: ADMIT Internal Medicine; ATTEND Internal Medicine
PROC: 0DB68ZX Excision of Stomach, Via Natural or Artificial Opening Endoscopic, Diagnostic (ICD-10-PCS; 2017-12-02)
PROC: 0DJD8ZZ Inspection of Lower Intestinal Tract, Via Natural or Artificial Opening Endoscopic (ICD-10-PCS; principal; 2017-12-02 11:00)
DX: K92.2 Gastrointestinal hemorrhage, unspecified (principal); Z68.43 Body mass index [BMI] 50.0-59.9, adult; K64.9 Unspecified hemorrhoids; R10.9 Unspecified abdominal pain; D64.9 Anemia, unspecified; E66.01 Morbid (severe) obesity due to excess calories; M54.5 Low back pain; E03.9 Hypothyroidism, unspecified; K21.9 Gastro-esophageal reflux disease without esophagitis; K76.9 Liver disease, unspecified; Z87.11 Personal history of peptic ulcer disease; Z98.84 Bariatric surgery status
CPT/HCPCS: 36415; 36430; 74176-TC; 74177-TC; 80048; 80053; 81003; 82272; 83540; 83550; 83605; 83735; 84100; 84703; 85025; 85027; 85610; 85730; 86850; 86900; 86901; 86922; 87040; 87086; 88305-TC; 93005; 93010; 94760; 99283-25; J0131; P9038; P9058